=== PATIENT | male | born 1950 ===

== ENCOUNTER 2022-08-06 08:51 | Inpatient (IN) | payer OTHER ==
[~2022-08-06] VITALS: Ht 162.6 cm; Wt 67.1 kg
[2022-08-06] MEDS ORDERED: COZAAR50 MG PO (09:35)
[2022-08-06] MEDS ORDERED: NASAL MIST126 ML (09:36)
[2022-08-06] MEDS ORDERED: HYDROCHLOROTH12.5 MG PO (09:36)
[2022-08-06] MEDS ORDERED: VITAMIN D31 ML PO (09:36)
[2022-08-06] MEDS ORDERED: [UNRECOGNIZED DRUG - OTHER] PO (09:37)
[2022-08-06] MEDS ORDERED: [UNRECOGNIZED DRUG - OTHER] PO (09:37)
[2022-08-13] MEDS ORDERED: TRAM1TAB98 PO (16:20)
[2022-08-13] MEDS ORDERED: LEVSIN/SL0.125 MG SL (16:20)
== END 2022-08-13 17:36 | disposition home or self-care (01) | DRG 330 ==
LOC: SURG 08-09 09:45 → O/R 08-09 10:09 → SURG 08-09 10:09
PROVIDERS: ADMIT Surgery; ATTEND Surgery
PROC: 0DBP4ZZ Excision of Rectum, Percutaneous Endoscopic Approach (ICD-10-PCS; 2022-08-09)
PROC: 07BC4ZZ Excision of Pelvis Lymphatic, Percutaneous Endoscopic Approach (ICD-10-PCS; 2022-08-09)
PROC: 0DBU4ZZ Excision of Omentum, Percutaneous Endoscopic Approach (ICD-10-PCS; 2022-08-09)
PROC: 0DJD8ZZ Inspection of Lower Intestinal Tract, Via Natural or Artificial Opening Endoscopic (ICD-10-PCS; 2022-08-09)
PROC: 0DTN4ZZ Resection of Sigmoid Colon, Percutaneous Endoscopic Approach (ICD-10-PCS; principal; 2022-08-09 20:45)
DX: D12.5 Benign neoplasm of sigmoid colon (principal); K56.7 Ileus, unspecified; K91.89 Other postprocedural complications and disorders of digestive system; R59.0 Localized enlarged lymph nodes; I11.9 Hypertensive heart disease without heart failure